=== PATIENT | male | born 1950 | race Caucasian/White ===

== ENCOUNTER 2024-03-31 11:01 | Inpatient (IN) | payer MEDICARE, OTHER ==
[~2024-03-31] VITALS: Ht 165.1 cm; Wt 68.0 kg
[2024-03-31 11:31] LABS: BASOPHILS # (AUTO) 0.1 K/UL (0.0-0.2); BASOPHILS % (AUTO) 0.8 % (0.0-2.0); EOSINOPHILS # (AUTO) 0.1 K/uL (0.0-0.7); EOSINOPHILS % (AUTO) 1.3 % (0.0-7.0); HEMATOCRIT 40.1 % (36.7-47.1); HEMOGLOBIN 13.7 g/dL (12.5-16.3); LYMPHOCYTES # (AUTO) 1.7 K/uL (0.8-4.8); MEAN CORPUSCULAR HGB CONC 34 g/dL (32.5-36.3); MEAN CORPUSCULAR VOLUME 87.4 fL (73.0-96.2); MONOCYTES # (AUTO) 0.5 K/uL (0.1-1.30); MONOCYTES % (AUTO) 8.6 % (0.0-11.0); NEUTROPHILS # (AUTO) 3.8 K/uL (1.8-8.9); NEUTROPHILS % (AUTO) 62.3 % (38.5-71.5); PLATELET COUNT (AUTO) 298 K/uL (152-348); RED BLOOD CELL COUNT(AUTO) 4.59 MIL/uL (4.06-5.63); RED CELL DISTRIBUTION WIDTH 14.3 % (12.1-16.2); WHITE BLOOD COUNT (AUTO) 6.1 K/uL (3.6-10.2)
[2024-03-31] MEDS ORDERED: INSU100V39 SQ (11:34)
[2024-03-31] MEDS ORDERED: BISA10SU61 RC (11:34)
[2024-03-31] MEDS ORDERED: FENO145T21 PO (11:34)
[2024-03-31] MEDS ORDERED: MAGN400O6 PO (11:34)
[2024-03-31] MEDS ORDERED: AMLO-212 PO (11:34)
[2024-03-31] MEDS ORDERED: ATOR40TA PO (11:34)
[2024-03-31] MEDS ORDERED: GLIP5TAB13 PO (11:34)
[2024-03-31] MEDS ORDERED: BUPR-96 PO (11:34)
[2024-03-31] MEDS ORDERED: ICOS1CAP PO (11:34)
[2024-03-31] MEDS ORDERED: NA P133E RC (11:34)
[2024-03-31] MEDS ORDERED: ACET-73 PO ×2 (11:34)
[2024-03-31] MEDS ORDERED: LISI20TA30 PO (11:34)
[2024-03-31] MEDS ORDERED: CLOP75TA33 PO (11:34)
[2024-03-31] MEDS ORDERED: ACET-3117 PO ×2 (11:34)
[2024-03-31] MEDS ORDERED: CARV6.252 PO (11:34)
[2024-03-31 11:43] LABS: CALCIUM 9.5 mg/dL (8.5-10.1); CARBON DIOXIDE 25 mmol/L (21-32); CHLORIDE 104 mmol/L (98-107); CREATININE 3.2 mg/dL (0.6-1.3); GLUCOSE 208 mg/dL (74-106); POTASSIUM 4.2 mmol/L (3.5-5.1); SODIUM SERUM 131 mmol/L (136-145); UREA NITROGEN, BLOOD 50 mg/dL (7-18)
[2024-03-31 11:44] LABS: DIFFERENTIAL COMMENT 1
[2024-03-31 11:58] LABS: ALANINE AMINOTRANSFERASE 17 U/L (16-63); ALBUMIN 3.7 g/dL (3.4-5.0); ALKALINE PHOSPHATASE 80 U/L (50-136); ASPARTATE AMINOTRANSFERASE 20 U/L (15-37); BILIRUBIN,DIRECT 0.2 mg/dL (0.0-0.2); BILIRUBIN,TOTAL 0.6 mg/dL (0.2-1.0); TOTAL PROTEIN, SERUM 8.2 g/dL (6.4-8.2)
[2024-03-31] MEDS ORDERED: AMLODIPINE 5 MG TABLET ONE (15:35)
[2024-03-31] MEDS ORDERED: CLOPIDOGREL 75 MG TABLET ONE (15:35)
[2024-03-31] MEDS ORDERED: LISINOPRIL 10 MG TABLET ONE (15:35)
[2024-03-31] MEDS: LISINOPRIL 10 MG TABLET PO ONE (15:37)
[2024-03-31] MEDS: AMLODIPINE 5 MG TABLET PO ONE (15:37)
[2024-03-31] MEDS: CLOPIDOGREL 75 MG TABLET PO ONE (15:37)
[2024-03-31] MEDS: buPROPion XL 150 MG TAB.SR.24H PO SCH (15:40)
[2024-03-31] MEDS: glipiZIDE 5 MG TABLET PO SCH ×2 (15:41→21:41)
[2024-03-31 17:45] LABS: *BILIRUBIN,URIN NEGATIVE (NEGATIVE); *BLOOD, URINE NEGATIVE (NEGATIVE); *CLARITY,URINE CLEAR (CLEAR); *COLOR,URINE YELLOW (YELLOW); *KETONES,URINE NEGATIVE (NEGATIVE); *PROTEIN,URINE 2+ (NEGATIVE); *UROBILINOGEN,URINE 0.2 E.U./dl (NORMAL); LEUKOCYTE ESTERASE ,URINE TRACE (NEGATIVE); NITRITE, URINE NEGATIVE (NEGATIVE); UGLUCOSE 1+ (NEGATIVE)
[2024-03-31 18:20] LABS: BACTERIA,URINE FEW /HPF (NONE SEEN); RBC,URINE NONE SEEN /HPF (0-3); SQUAMOUS EPITHELIAL CELL,UR FEW /HPF (NONE SEEN)
[2024-03-31] MEDS ORDERED: BUPR150T5 PO (18:33)
[2024-03-31] MEDS ORDERED: BISACODYL 10 MG SUPP.RECT RC PRN (19:00)
[2024-03-31] MEDS ORDERED: ACETAMINOPHEN 325 MG TABLET PO PRN (19:00)
[2024-03-31] MEDS ORDERED: ONDANSETRON 4 MG/2 ML VIAL IV PRN (19:15)
[2024-03-31] MEDS ORDERED: DEXTROSE 50% 50 ML DISP.SYRIN IV PRN (19:15)
[2024-03-31] MEDS ORDERED: hydrALAZINE HCL 25 MG TABLET PO PRN (19:15)
[2024-03-31] MEDS: ATORVASTATIN 40 MG TABLET PO SCH (21:38)
[2024-03-31] MEDS: DOCUSATE SODIUM 250 MG CAPSULE PO SCH (21:38)
[2024-03-31] MEDS: BLOOD SUGAR DIAGNOSTIC 1 EACH STRIP VI SCH (21:48)
[2024-03-31] MEDS: TEMAZEPAM 15 MG CAPSULE PO PRN (21:55)
[2024-03-31] MEDS: INSULIN REGULAR, HUMAN 1000 UNIT/10 ML VIAL SQ PRN (21:56)
[2024-03-31 22:26] VITALS: BP 139/83; TEMP 98; O2SAT 100
[2024-03-31] MEDS: IV NS 1000 ML 1,000 ML IV PRN (22:40)
[2024-03-31] MEDS ORDERED: CEFTRIAXONE 1 G VIAL ONE (22:41)
[2024-03-31] MEDS ORDERED: CEFTRIAXONE /D5W 50ML IVPB **ER PYXIS IV ONE (22:42)
[2024-03-31] MEDS: CEFTRIAXONE 1 G in IV DEXTROSE 5% 50 ML IV SCH (22:49)
[2024-04-01 00:59] VITALS: BP 140/60; TEMP 98.2
[2024-04-01] MEDS: PANTOPRAZOLE SODIUM 40 MG TABLET.DR PO SCH (06:16)
[2024-04-01 06:42] LABS: BASOPHILS # (AUTO) 0.1 K/UL (0.0-0.2); BASOPHILS % (AUTO) 0.7 % (0.0-2.0); EOSINOPHILS # (AUTO) 0.1 K/uL (0.0-0.7); EOSINOPHILS % (AUTO) 1.7 % (0.0-7.0); HEMATOCRIT 39.2 % (36.7-47.1); HEMOGLOBIN 13.3 g/dL (12.5-16.3); LYMPHOCYTES # (AUTO) 2.4 K/uL (0.8-4.8); LYMPHOCYTES % (AUTO) 33.6 % (20.5-51.5); MEAN CORPUSCULAR HEMOGLOBIN 29.5 uug (23.8-33.4); MEAN CORPUSCULAR HGB CONC 34 g/dL (32.5-36.3); MEAN CORPUSCULAR VOLUME 87.3 fL (73.0-96.2); MONOCYTES # (AUTO) 0.7 K/uL (0.1-1.30); MONOCYTES % (AUTO) 9.8 % (0.0-11.0); NEUTROPHILS # (AUTO) 3.9 K/uL (1.8-8.9); NEUTROPHILS % (AUTO) 54.2 % (38.5-71.5); PLATELET COUNT (AUTO) 281 K/uL (152-348); RED BLOOD CELL COUNT(AUTO) 4.49 MIL/uL (4.06-5.63); RED CELL DISTRIBUTION WIDTH 13.9 % (12.1-16.2); WHITE BLOOD COUNT (AUTO) 7.2 K/uL (3.6-10.2)
[2024-04-01 06:56] LABS: DIFFERENTIAL COMMENT 1
[2024-04-01 06:59] LABS: ALANINE AMINOTRANSFERASE 20 U/L (16-63); ALBUMIN 3.5 g/dL (3.4-5.0); ALKALINE PHOSPHATASE 73 U/L (50-136); ASPARTATE AMINOTRANSFERASE 18 U/L (15-37); BILIRUBIN,TOTAL 0.6 mg/dL (0.2-1.0); CARBON DIOXIDE 27 mmol/L (21-32); CHLORIDE 106 mmol/L (98-107); CHOLESTEROL 188 mg/dL (<200); CREATININE 3.2 mg/dL (0.6-1.3); GLUCOSE 103 mg/dL (74-106); HDL CHOLESTEROL 39 mg/dL (40-60); MAGNESIUM 2.4 mg/dL (1.8-2.4); PHOSPHOROUS 3.6 mg/dL (2.5-4.9); POTASSIUM 4.1 mmol/L (3.5-5.1); SODIUM SERUM 140 mmol/L (136-145); TOTAL PROTEIN, SERUM 7.5 g/dL (6.4-8.2); TRIGLYCERIDES 194 MG/DL (30-150); UREA NITROGEN, BLOOD 47 mg/dL (7-18)
[2024-04-01 07:05] LABS: THYROID STIMULATING HORMONE 1.859 mIU/mL (0.358-3.740)
[2024-04-01 07:09] LABS: CALCIUM 9.1 mg/dL (8.5-10.1)
[2024-04-01 07:14] LABS: IRON, SERUM 41 ug/dL (50-175)
[2024-04-01] MEDS ORDERED: BUPR75TA8 PO (07:16)
[2024-04-01 08:24] VITALS: BP 123/78; TEMP 98.5
[2024-04-01] MEDS ORDERED: buPROPion SR 150 MG TABLET.SA PO SCH ×2 (09:00)
[2024-04-01] MEDS: CLOPIDOGREL 75 MG TABLET PO SCH (09:41)
[2024-04-01] MEDS: AMLODIPINE 5 MG TABLET PO SCH (09:41)
[2024-04-01] MEDS: FENOFIBRATE NANOCRYSTALLIZED 145 MG TABLET PO SCH (09:41)
[2024-04-01] MEDS: CARVEDILOL 6.25 MG TABLET PO SCH (09:42)
[2024-04-01] MEDS: buPROPion 75 MG TABLET PO SCH (09:46)
[2024-04-01 16:11] VITALS: BP 128/80; TEMP 98.4; O2SAT 97
[2024-04-01 20:00] VITALS: BP 109/65; TEMP 97.8; O2SAT 96
[2024-04-01] MEDS: DOCUSATE SODIUM 100 MG CAPSULE PO SCH (21:20)
[2024-04-01] MEDS ORDERED: LORAZEPAM 2 MG/1 ML VIAL IM ONE (21:45)
== END 2024-04-01 21:50 | disposition left against medical advice (07) | DRG 683 ==
LOC: ER 11:01 → TELE3 20:25 → MEDSURG3 04-01 10:40
PROVIDERS: ADMIT Internal Medicine; ATTEND Internal Medicine
DX: N17.0 Acute kidney failure with tubular necrosis (principal); D68.59 Other primary thrombophilia; N39.0 Urinary tract infection, site not specified; E87.1 Hypo-osmolality and hyponatremia; F01.53 Vascular dementia, unspecified severity, with mood disturbance; F05 Delirium due to known physiological condition; F01.511 Vascular dementia, unspecified severity, with agitation; N25.81 Secondary hyperparathyroidism of renal origin; R53.1 Weakness; I13.10 Hypertensive heart and chronic kidney disease without heart failure, with stage 1 through stage 4 chronic kidney disease, or unspecified chronic kidney disease; Z53.29 Procedure and treatment not carried out because of patient's decision for other reasons; E11.22 Type 2 diabetes mellitus with diabetic chronic kidney disease; Z91.199 Patient's noncompliance with other medical treatment and regimen due to unspecified reason; E78.5 Hyperlipidemia, unspecified; I12.9 Hypertensive chronic kidney disease with stage 1 through stage 4 chronic kidney disease, or unspecified chronic kidney disease; N18.9 Chronic kidney disease, unspecified; I69.398 Other sequelae of cerebral infarction; F32.A Depression, unspecified; R26.81 Unsteadiness on feet; E11.65 Type 2 diabetes mellitus with hyperglycemia; R62.7 Adult failure to thrive; M48.061 Spinal stenosis, lumbar region without neurogenic claudication; Z74.09 Other reduced mobility; Z91.81 History of falling; Z79.4 Long term (current) use of insulin; Z79.84 Long term (current) use of oral hypoglycemic drugs; Z79.02 Long term (current) use of antithrombotics/antiplatelets; Q78.9 Osteochondrodysplasia, unspecified; M47.816 Spondylosis without myelopathy or radiculopathy, lumbar region; E61.1 Iron deficiency
CPT/HCPCS: 36415; 70450; 71045; 83550; 83605; 83735; 84100; 84443; 84484; 85025; 85730; 87040; 93005; 93307; A4606; A4663; G0378; J0696; J7040